=== PATIENT | female | born 1995 | race Caucasian/White ===

== ENCOUNTER 2018-11-05 14:34 | Emergency (ER) | payer OTHER ==
[2018-11-05 20:55] LABS: ADD MAN DIFF? NO
[2018-11-05 20:57] LABS: WHITE BLOOD COUNT 11.7 10^3/ul (4.8-10.8)
[2018-11-05 20:57] LABS: BASOPHIL # 0.1 10^3/ul (0.0-0.1); BASOPHILS % 0.7 % (0.0-2.0); EOSINOPHILS # 0.2 10^3/ul (0.0-0.5); EOSINOPHILS % 1.4 % (0.0-7.0); HEMATOCRIT 41.5 % (37.0-47.0); HEMOGLOBIN 13.7 g/dl (12.0-16.0); LYMPHOCYTES # 4.3 10^3/ul (0.8-2.9); LYMPHOCYTES % 36.8 % (15.0-51.0); MEAN CORPUSCULAR HEMOGLOBIN 27.9 pg (29.0-33.0); MEAN CORPUSCULAR VOLUME 84.5 fl (82.0-101.0); MEAN PLATELET VOLUME 12.2 fl (7.4-10.4); MONOCYTE # 0.6 10^3/ul (0.3-0.9); MONOCYTES % 4.8 % (0.0-11.0); NEUTROPHIL # 6.6 10^3/ul (1.6-7.5); PLATELET COUNT 278 10^3/UL (140-415); RED BLOOD COUNT 4.91 10^6/ul (4.20-5.40); RED CELL DISTRIBUTION WIDTH 16.1 % (11.5-14.5)
[2018-11-05] MEDS: DIPHENHYDRAMINE 50 MG INJ IV (21:02)
[2018-11-05] MEDS: SOD CHLORIDE 0.9% 1,000 ML IV (21:02)
[2018-11-05] MEDS: METOCLOPRAMIDE 10 MG INJ IV (21:02)
[2018-11-05 21:03] LABS: ADD UMIC YES; UR AMORPHOUS CRYSTAL FEW /HPF (NONE SEEN); UR ASCORBIC ACID NEGATIVE (NEGATIVE); UR BACTERIA MODERATE /HPF (NONE SEEN); UR BILIRUBIN (Dip) NEGATIVE (NEGATIVE); UR BLOOD (Dip) NEGATIVE (NEGATIVE); UR CLARITY CLOUDY (CLEAR); UR COLOR YELLOW (YELLOW); UR GLUCOSE (Dip) NEGATIVE (NEGATIVE); UR KETONES (Dip) 1+ mg/dL (NEGATIVE); UR LEUKOCYTE ESTERASE (Dip) NEGATIVE Leu/ul (NEGATIVE); UR MUCUS MODERATE /HPF (NONE SEEN); UR NITRITE (Dip) NEGATIVE (NEGATIVE); UR RBC 0 /HPF (0-5); UR SPECIFIC GRAVITY (Dip) 1.017 (1.003-1.030); UR SQUAMOUS EPITHELIAL CELL FEW /HPF (FEW); UR TOTAL PROTEIN (Dip) NEGATIVE (NEGATIVE); UR UROBILINOGEN (Dip) NEGATIVE (NEGATIVE); UR WBC 0 /HPF (0-5)
[2018-11-05 21:20] LABS: ALANINE AMINOTRANSFERASE 47 IU/L (13-69); ALBUMIN/GLOBULIN RATIO 1.25; ALKALINE PHOSPHATASE 78 IU/L (42-121); ANION GAP 16 (5-13); ASPARTATE AMINO TRANSFERASE 22 IU/L (15-46); BILIRUBIN,INDIRECT 0.4 mg/dl (0-1.1); BILIRUBIN,TOTAL 0.4 mg/dl (0.2-1.3); BLOOD UREA NITROGEN 6 mg/dl (7-20); CALCIUM 9.9 mg/dl (8.4-10.2); CARBON DIOXIDE 23 mmol/L (21-31); CHLORIDE 102 mmol/L (97-110); CREATININE 0.51 mg/dl (0.44-1.00); Estimated GFR > 60 mL/min (>60); GLUCOSE 88 mg/dl (70-220); LIPASE 59 U/L (23-300); POTASSIUM 3.6 mmol/L (3.5-5.1); SODIUM 141 mmol/L (135-144)
== END 2018-11-05 23:06 | disposition home or self-care (01) ==
LOC: FTE 14:34
DX: O23.41 Unspecified infection of urinary tract in pregnancy, first trimester (principal); R10.2 Pelvic and perineal pain; Z3A.11 11 weeks gestation of pregnancy
CPT/HCPCS: 36415; 76801; 80053; 81001; 83690; 84702; 85025; 86900; 86901; 96374; 96375; 99285-25

== ENCOUNTER 2019-02-04 16:33 | Outpatient (CLI) | payer OTHER ==
[2019-02-04 17:16] LABS: ADD MAN DIFF? NO
[2019-02-04 17:17] LABS: WHITE BLOOD COUNT 10.3 10^3/ul (4.8-10.8)
[2019-02-04 17:18] LABS: BASOPHIL # 0.1 10^3/ul (0.0-0.1); BASOPHILS % 0.5 % (0.0-2.0); EOSINOPHILS # 0.1 10^3/ul (0.0-0.5); EOSINOPHILS % 1.4 % (0.0-7.0); HEMATOCRIT 30.2 % (37.0-47.0); HEMOGLOBIN 10.1 g/dl (12.0-16.0); LYMPHOCYTES # 3.1 10^3/ul (0.8-2.9); LYMPHOCYTES % 30.5 % (15.0-51.0); MEAN CORPUSCULAR HEMOGLOBIN 29.8 pg (29.0-33.0); MEAN CORPUSCULAR HGB CONC 33.4 g/dl (32.0-37.0); MEAN CORPUSCULAR VOLUME 89.1 fl (82.0-101.0); MEAN PLATELET VOLUME 11.9 fl (7.4-10.4); MONOCYTE # 0.7 10^3/ul (0.3-0.9); MONOCYTES % 6.6 % (0.0-11.0); NEUTROPHIL # 6.2 10^3/ul (1.6-7.5); NEUTROPHILS % 60.5 % (39.0-77.0); PLATELET COUNT 215 10^3/UL (140-415); RED BLOOD COUNT 3.39 10^6/ul (4.20-5.40); RED CELL DISTRIBUTION WIDTH 14.5 % (11.5-14.5)
[2019-02-04 17:32] LABS: ADD UMIC YES; UR ASCORBIC ACID 20 mg/dL (NEGATIVE); UR BACTERIA FEW /HPF (NONE SEEN); UR BILIRUBIN (Dip) NEGATIVE (NEGATIVE); UR BLOOD (Dip) NEGATIVE (NEGATIVE); UR CLARITY CLOUDY (CLEAR); UR COLOR YELLOW (YELLOW); UR GLUCOSE (Dip) NEGATIVE (NEGATIVE); UR KETONES (Dip) NEGATIVE (NEGATIVE); UR LEUKOCYTE ESTERASE (Dip) NEGATIVE Leu/ul (NEGATIVE); UR NITRITE (Dip) NEGATIVE (NEGATIVE); UR RBC 1 /HPF (0-5); UR SPECIFIC GRAVITY (Dip) 1.016 (1.003-1.030); UR SQUAMOUS EPITHELIAL CELL MODERATE /HPF (FEW); UR TOTAL PROTEIN (Dip) NEGATIVE (NEGATIVE); UR UROBILINOGEN (Dip) 1+ mg/dL (NEGATIVE); UR WBC 4 /HPF (0-5)
== END 2019-02-04 19:38 | disposition home or self-care (01) ==
LOC: OBT 16:33 → L-D 16:35 → OBT 19:38
DX: O42.90 Premature rupture of membranes, unspecified as to length of time between rupture and onset of labor, unspecified weeks of gestation (principal); Z3A.24 24 weeks gestation of pregnancy
CPT/HCPCS: 76815; 76817; 81001; 85025

== ENCOUNTER 2019-05-06 14:42 | Inpatient (IN) | payer MEDICAID, OTHER ==
[~2019-05-06 14:42] MED LIST: OXYTOCIN 30 UNITS/LR 500 ML BAG IV
[2019-05-06] MEDS ORDERED: LACTATED RINGER'S 1,000 ML IV (17:08)
[2019-05-06] MEDS ORDERED: METHYLERGONOVINE 0.2 MG INJ IM ×2 (17:30)
[2019-05-06] MEDS ORDERED: CARBOPROST 250 MCG INJ IM ×2 (17:30)
[2019-05-06] MEDS ORDERED: MISOPROSTOL 200 MCG TAB PR ×2 (17:30)
[2019-05-06] MEDS ORDERED: OXYTOCIN 30 UNITS/LR 500 ML IV ×2 (17:30)
[2019-05-06] MEDS ORDERED: CEFAZOLIN 2 GM/50 ML (PMX) 50 ML IVPB ×2 (17:30)
[2019-05-06 18:06] LABS: ADD MAN DIFF? NO
[2019-05-06 18:14] LABS: BASOPHIL # 0.1 10^3/ul (0.0-0.1); BASOPHILS % 0.4 % (0.0-2.0); EOSINOPHILS # 0.1 10^3/ul (0.0-0.5); EOSINOPHILS % 0.7 % (0.0-7.0); HEMATOCRIT 32.5 % (37.0-47.0); HEMOGLOBIN 10.3 g/dl (12.0-16.0); LYMPHOCYTES % 26.2 % (15.0-51.0); MEAN CORPUSCULAR HEMOGLOBIN 26.3 pg (29.0-33.0); MEAN CORPUSCULAR HGB CONC 31.7 g/dl (32.0-37.0); MEAN CORPUSCULAR VOLUME 83.1 fl (82.0-101.0); MEAN PLATELET VOLUME 12.7 fl (7.4-10.4); MONOCYTE # 0.6 10^3/ul (0.3-0.9); NEUTROPHIL # 7.7 10^3/ul (1.6-7.5); NEUTROPHILS % 67.3 % (39.0-77.0); PLATELET COUNT 244 10^3/UL (140-415); RED BLOOD COUNT 3.91 10^6/ul (4.20-5.40); RED CELL DISTRIBUTION WIDTH 14.6 % (11.5-14.5)
[2019-05-06 18:14] LABS: WHITE BLOOD COUNT 11.5 10^3/ul (4.8-10.8)
[2019-05-06 18:33] LABS: INR 0.92; PROTIME 12.5 Sec (11.9-14.9)
[2019-05-06 18:34] LABS: PARTIAL THROMBOPLASTIN TIME 29.5 Sec (23.0-35.0)
[2019-05-06 19:03] LABS: HEPATITIS B SURFACE ANTIGEN NEGATIVE (NEGATIVE)
[2019-05-06] MEDS: LACTATED RINGER'S 1,000 ML IV ×2 (19:11→20:37)
[2019-05-06] MEDS ORDERED: ONDANSETRON 4 MG INJ (22:59)
[2019-05-06] MEDS ORDERED: morphine SULFATE/PF (10 MG/10 ML) INJ (22:59)
[2019-05-06] MEDS ORDERED: PHENYLephrine (100 MCG/ML) 10ML SYG (22:59)
[2019-05-06] MEDS ORDERED: METOCLOPRAMIDE 10 MG INJ (22:59)
[2019-05-06] MEDS ORDERED: DEXAMETHASONE 4 MG/ML 1 ML INJ (23:00)
[2019-05-06] MEDS ORDERED: OXYTOCIN 10 UNIT INJ (23:00)
[2019-05-06] MEDS ORDERED: KETOROLAC 30 MG INJ (23:00)
[2019-05-06] MEDS ORDERED: AZITHROMYCIN 500MG/NS (PMX) 250 ML (23:20)
[2019-05-06] MEDS ORDERED: NALOXONE (0.4 MG/ML) INJ IV (23:30)
[2019-05-06] MEDS ORDERED: HYDROCODONE/APAP (5/325) TAB PO (23:30)
[2019-05-06] MEDS ORDERED: HYDROmorphONE 0.5 MG/0.5 ML SYG IV ×2 (23:30)
[2019-05-06] MEDS ORDERED: NALBUPHINE HCL (10 MG/1 ML) INJ IV (23:30)
[2019-05-06] MEDS ORDERED: morphine 2 MG INJ IV ×2 (23:30)
[2019-05-06] MEDS ORDERED: ACETAMINOPHEN 500 MG TAB PO (23:30)
[2019-05-06] MEDS ORDERED: DIPHENHYDRAMINE 50 MG INJ IV (23:30)
[2019-05-07] MEDS: LACTATED RINGER'S 1,000 ML IV ×3 (00:32→19:30)
[2019-05-07] MEDS ORDERED: CARBOPROST 250 MCG INJ IM (01:00)
[2019-05-07] MEDS ORDERED: METHYLERGONOVINE 0.2 MG INJ IM (01:00)
[2019-05-07] MEDS ORDERED: OXYTOCIN 30 UNITS/LR 500 ML IV (01:00)
[2019-05-07] MEDS ORDERED: MISOPROSTOL 200 MCG TAB PR (01:00)
[2019-05-07] MEDS: ONDANSETRON 4 MG INJ IV (05:32)
[2019-05-07] MEDS: OXYTOCIN 30 UNITS/LR 500 ML IV (05:32)
[2019-05-07] MEDS: SENNA/DOCUSATE NA (8.6MG/50MG) TAB PO ×2 (08:41→21:52)
[2019-05-07 09:27] LABS: ADD MAN DIFF? NO
[2019-05-07 09:29] LABS: WHITE BLOOD COUNT 14.5 10^3/ul (4.8-10.8)
[2019-05-07 09:29] LABS: BASOPHILS % 0.1 % (0.0-2.0); HEMATOCRIT 31.7 % (37.0-47.0); HEMOGLOBIN 9.9 g/dl (12.0-16.0); LYMPHOCYTES # 1.4 10^3/ul (0.8-2.9); LYMPHOCYTES % 9.3 % (15.0-51.0); MEAN CORPUSCULAR HEMOGLOBIN 25.8 pg (29.0-33.0); MEAN CORPUSCULAR HGB CONC 31.2 g/dl (32.0-37.0); MEAN CORPUSCULAR VOLUME 82.8 fl (82.0-101.0); MONOCYTE # 0.6 10^3/ul (0.3-0.9); MONOCYTES % 3.9 % (0.0-11.0); NEUTROPHIL # 12.5 10^3/ul (1.6-7.5); NEUTROPHILS % 86.2 % (39.0-77.0); PLATELET COUNT 217 10^3/UL (140-415); RED BLOOD COUNT 3.83 10^6/ul (4.20-5.40); RED CELL DISTRIBUTION WIDTH 14.6 % (11.5-14.5)
[2019-05-07 15:30] LABS: RAPID PLASMA REAGIN NONREACTIVE (NR)
[2019-05-07] MEDS: KETOROLAC 30 MG INJ IV (21:52)
[2019-05-08] MEDS: LACTATED RINGER'S 1,000 ML IV ×3 (01:08→17:08)
[2019-05-08] MEDS: IBUPROFEN 800 MG TAB PO ×3 (05:19→22:39)
[2019-05-08] MEDS: SENNA/DOCUSATE NA (8.6MG/50MG) TAB PO ×2 (11:53→20:58)
[2019-05-08] MEDS: OXYCODONE/ACETAMINOPHEN (5/325) TAB PO ×2 (11:54→19:20)
[2019-05-09] MEDS: LACTATED RINGER'S 1,000 ML IV ×2 (01:08→09:08)
[2019-05-09] MEDS: OXYCODONE/ACETAMINOPHEN (5/325) TAB PO ×2 (01:50→11:00)
[2019-05-09] MEDS: LANOLIN HPA 1 PKT TOP (05:03)
[2019-05-09] MEDS: IBUPROFEN 800 MG TAB PO ×2 (06:35→13:09)
[2019-05-09] MEDS: SENNA/DOCUSATE NA (8.6MG/50MG) TAB PO (11:00)
== END 2019-05-09 13:40 | disposition home or self-care (01) | DRG 788 ==
LOC: OBT 14:42 → L-D 05-07 00:26 → PP1 05-07 03:32 → OBT 15:57 → L-D 15:57
PROVIDERS: Obstetrics & Gynecology
PROC: 10D00Z1 Extraction of Products of Conception, Low, Open Approach (ICD-10-PCS; principal; 2019-05-06 21:00)
DX: O34.211 Maternal care for low transverse scar from previous cesarean delivery (principal); Z3A.37 37 weeks gestation of pregnancy; Z37.0 Single live birth
CPT/HCPCS: 85025; 85610; 85730; 86592; 86850; 86900; 86901; 87340; 99464